=== PATIENT | female | born 1990 | race Caucasian/White ===

== ENCOUNTER 2018-12-07 12:10 | Observation (INO) ==
[2018-12-07] MEDS ORDERED: Piperacillin/Tazobactam 3.375 GM in Water for inj. (sterile) 20 ML IVP ONE (12:38)
[2018-12-07 13:22] LABS: Basophils % 0.4 %; Eosinophils # 0.3 K/mcL (0.0-0.6); Eosinophils % 3.8 %; Hematocrit 37.4 % (35.3-44.9); Immature Granulocytes % 0.3 % (0-4); Lymphocytes # 1.6 K/mcL (0.6-4.6); Lymphocytes % 20.1 %; Mean Corpuscular HGB Conc 32.1 g/dL (31.6-35.5); Mean Corpuscular Hemoglobin 29.3 pg (28.0-33.3); Mean Corpuscular Volume 91.2 fL (83.0-100.0); Mean Platelet Volume 11.5 fL (9.4-12.4); Monocytes # 0.6 K/mcL (0.0-1.3); Monocytes % 7.1 %; Neutrophils # 5.5 K/mcL (1.6-8.9); Platelet Count 280 K/mcL (140-400); Red Cell Distribution Width 15.3 % (11.5-14.5); Segmented Neutrophils % 68.3 %
[2018-12-07] MEDS ORDERED: Ketorolac 15 MG/ML VIAL IVP ONE (13:40)
[2018-12-07] MEDS ORDERED: Naloxone 0.4 MG/ML INJ IVP PRN ×2 (14:49→20:26)
[2018-12-07] MEDS ORDERED: Ondansetron 4 MG/2 ML VIAL IVP PRN ×2 (14:49→20:26)
[2018-12-07 14:52] LABS: BUN/Creatinine Ratio 12 (6-26); Blood Urea Nitrogen 7 mg/dL (6-20); Calcium 8.4 mg/dL (8.6-10.3); Carbon Dioxide 20 mEq/L (23-29); Chloride 110 mEq/L (98-107); Glucose 98 mg/dL (70-105); Osmolality,Calculated 284 (280-300); Potassium 3.9 mEq/L (3.5-5.1); Sodium 138 mEq/L (136-145); eGFR For African Americans > 60 (> 60); eGFR For Non-African Americans > 60 (> 60)
[2018-12-07] MEDS ORDERED: Tdap (Boostrix) Vaccine 0.5 ML SYRINGE IM ONE ×2 (14:55→20:45)
[2018-12-07] MEDS ORDERED: Ketorolac 15 MG/ML VIAL IVP PRN ×2 (14:55→20:26)
[2018-12-07] MEDS ORDERED: Ringers Solution, Lactated 1,000 ML IVC SCH ×2 (15:00→20:26)
[2018-12-07 15:24] LABS: INR 1.1; Prothrombin Time 12.2 Seconds (9.4-12.1)
[2018-12-07] MEDS ORDERED: Bupivacaine/EPI 1:200k 0.5%PF 10 ML VIAL ONE (17:51)
[2018-12-07] MEDS ORDERED: Lidocaine/EPI 1:100k 1% 20 ML VIAL ONE (17:51)
[2018-12-07] MEDS ORDERED: Morphine Sulfate 2 MG/ML SYRINGE IVP PRN ×2 (18:09→20:26)
[2018-12-07] MEDS ORDERED: *HR* Propofol 200 MG/20 ML VIAL IVP ONE (18:21)
[2018-12-07] MEDS ORDERED: *HR* Midazolam HCl 2 MG/2 ML VIAL ONE (18:21)
[2018-12-07] MEDS ORDERED: *HR* FentaNYL (PF) 100 MCG/2 ML VIAL ONE (18:21)
[2018-12-07] MEDS ORDERED: Lidocaine -MPF 2% 2 ML VIAL ONE (18:22)
[2018-12-07] MEDS ORDERED: *HR* PHENYLEPHRINE 1,000 MCG/10 ML SYRINGE IVP ONE (18:33)
[2018-12-07] MEDS ORDERED: Ondansetron 4 MG/2 ML VIAL ONE (18:33)
[2018-12-07] MEDS ORDERED: Dexamethasone 4 MG/ML VIAL ONE (18:33)
[2018-12-07] MEDS ORDERED: Piperacillin/Tazobactam 3.375 GM in 0.9 % Sodium Chloride Mini Bag 100 ML IVPB SCH (20:00)
[2018-12-07] MEDS: Piperacillin/Tazobactam 3.375 GM in 0.9 % Sodium Chloride Mini Bag 100 ML IVPB SCH (21:08)
[2018-12-08] MEDS: Piperacillin/Tazobactam 3.375 GM in 0.9 % Sodium Chloride Mini Bag 100 ML IVPB SCH ×3 (04:11→20:31)
[2018-12-08 04:12] LABS: Basophils % 0.2 %; Hematocrit 37.6 % (35.3-44.9); Immature Granulocytes % 0.2 % (0-4); Lymphocytes # 0.8 K/mcL (0.6-4.6); Lymphocytes % 9.4 %; Mean Corpuscular HGB Conc 31.9 g/dL (31.6-35.5); Mean Corpuscular Volume 90.8 fL (83.0-100.0); Mean Platelet Volume 11.8 fL (9.4-12.4); Monocytes # 0.2 K/mcL (0.0-1.3); Neutrophils # 7.2 K/mcL (1.6-8.9); Platelet Count 280 K/mcL (140-400); Red Blood Count 4.14 M/mcL (3.82-4.97); Red Cell Distribution Width 15.3 % (11.5-14.5); Segmented Neutrophils % 88.2 %; White Blood Count 8.2 K/mcL (4.3-11.1)
[2018-12-08 04:30] LABS: BUN/Creatinine Ratio 13 (6-26); Blood Urea Nitrogen 10 mg/dL (6-20); Calcium 8.3 mg/dL (8.6-10.3); Carbon Dioxide 19 mEq/L (23-29); Chloride 110 mEq/L (98-107); Glucose 135 mg/dL (70-105); Magnesium 2.1 mg/dL (1.6-2.6); Osmolality,Calculated 281 (280-300); Sodium 135 mEq/L (136-145); eGFR For African Americans > 60 (> 60); eGFR For Non-African Americans > 60 (> 60)
[2018-12-09] MEDS: Piperacillin/Tazobactam 3.375 GM in 0.9 % Sodium Chloride Mini Bag 100 ML IVPB SCH (03:56)
[2018-12-09 05:53] LABS: Hematocrit 32.8 % (35.3-44.9); Hemoglobin 10.5 g/dL (11.5-15.4); Mean Corpuscular Hemoglobin 29.3 pg (28.0-33.3); Mean Corpuscular Volume 91.6 fL (83.0-100.0); Mean Platelet Volume 11.6 fL (9.4-12.4); Platelet Count 240 K/mcL (140-400); Red Blood Count 3.58 M/mcL (3.82-4.97); Red Cell Distribution Width 15.6 % (11.5-14.5); White Blood Count 8.9 K/mcL (4.3-11.1)
[2018-12-09 06:12] LABS: BUN/Creatinine Ratio 14 (6-26); Blood Urea Nitrogen 10 mg/dL (6-20); Calcium 7.9 mg/dL (8.6-10.3); Carbon Dioxide 22 mEq/L (23-29); Chloride 113 mEq/L (98-107); Glucose 87 mg/dL (70-105); Osmolality,Calculated 288 (280-300); Potassium 3.5 mEq/L (3.5-5.1); Sodium 140 mEq/L (136-145); eGFR For African Americans > 60 (> 60); eGFR For Non-African Americans > 60 (> 60)
[2018-12-09 07:47] VITALS: BP 100/62
[2018-12-09] MEDS ORDERED: FLU Vac QV 19-20 (6Month+)/PF 0.5 ML SYRINGE IM ONE (10:17)
[2018-12-09] MEDS ORDERED: Aminoglycoside Consult 1 EACH MC ONE (10:59)
== END 2018-12-09 11:00 | disposition home or self-care (01) ==
LOC: 3NENU 12:10 → EMEROOARM 12:10 → SUATTDRO 15:14 → 3NENU 15:40
PROVIDERS: ADMIT Internal Medicine; ATTEND Internal Medicine